=== PATIENT | male | born 1965 | race Caucasian/White ===

== ENCOUNTER 2020-06-02 17:15 | Outpatient (REF) | payer MEDICARE, MEDICAID, SELFPAY ==
[2020-06-02 18:16] LABS: Abs Immature Grans 0.01 10^3/uL (0.0-0.06); Absolute Basophil Count 0.02 10^3/uL (0.0-0.2); Absolute Eosinophil Count 0.01 10^3/uL (0.0-0.7); Absolute Lymphocyte Count 1.73 10^3/uL (1.2-3.4); Absolute Monocyte Count 0.41 10^3/uL (0.1-0.8); Absolute Neutrophil Count 4.03 10^3/uL (1.2-6.7); Basophils % 0.3; Eosinophils % 0.2; HCT 43.3 % (40.0-50.0); HGB 14.3 g/dL (13.5-17.5); Immature Grans % 0.2; Lymphocytes % 27.9; MCH 30.4 pg (27.0-33.0); MCV 92.1 fL (80-95); MPV 11.3 fL (8.0-11.0); Monocytes % 6.6; Neutrophils % 64.8; Nucleated RBC 0 %; Platelet Count 191 10^3/uL (130-400); RDW 11.8 % (11.8-14.1); RDW-SD 39.7 fL; WBC 6.21 10^3/uL (4.4-10.8)
[2020-06-02 19:20] LABS: Calculated LDL 123 mg/dL (<100); Cholesterol 205 mg/dL (<200); HDL Cholesterol 65 mg/dL (40-60); Triglyceride 89 mg/dL (<150)
[2020-06-06 11:17] LABS: HIV-1/2 Ag & Ab Screen Negative (Negative)
== END 2020-06-02 17:35 ==
LOC: NCHCN 17:15
PROVIDERS: PCP Family Medicine; Visit Provider Family Medicine
DX: D70.9 Neutropenia, unspecified (principal); E78.89 Other lipoprotein metabolism disorders; Z11.4 Encounter for screening for human immunodeficiency virus [HIV]
CPT/HCPCS: 80061; 87389; 85025

== ENCOUNTER 2020-07-13 18:17 | Observation (INO) | payer MEDICARE, MEDICAID, SELFPAY ==
[2020-07-13] VITALS (34 sets, daily range): BP systolic 121–163; BP diastolic 73–90; PULSE 61–81; RESP 14–19; TEMP 36.1–36.7; O2SAT 94–98
--- NOTE | 2020-07-13 18:15 | RT.EKG_ITS ---
APPROVED REPORT Exam: Resting ECG Patient Location: E HR:74 bpm ECG Measurements Heart Rate 74 AXIS TX 134 P 54 QRSd 96 QRS 90 QT 370 T 11 QTc 412 Conclusion Sinus rhythm...normal P axis
--- NOTE | 2020-07-13 18:32 | DI.RAD_ITS ---
EXAM: XR CHEST 2V PA LATERAL CLINICAL HISTORY: Syncope TECHNIQUE: 2D digital imaging was performed. COMPARISON: No exams were available for comparison FINDINGS: MEDIASTINUM: Normal. HEART: Normal. PULMONARY VASCULATURE: Normal. LUNGS: Clear. Biapical pleural scarring. PLEURAL SPACE: No pleural effusion or pneumothorax. BONE:Within normal limits for the patient's age. OTHER FINDINGS:Normal. IMPRESSION: No acute pulmonary findings. DATA REPOSITORY: RADIATION DOSE DELIVERED:
--- NOTE | 2020-07-13 18:33 | W.ED.GENAD ---
Discharge Plan Disposition Patient Disposition: [facility] INPATIENT Condition: Good Discharge Details Chief Complaint: Dizzy/Sync Clinical Impression: Abnormal ECG, Syncope Primary Care Provider: Fredy Knott ED Provider: Antonio Vasquez Home Meds and New Rx's Prescriptions: No Action No Known Home Meds RF: 0 Discharge Instructions Additional Instructions: Home to rest this evening. We have ordered a Holter monitor for you to be worn as an outpatient for 48 hours. Please present to respiratory therapy tomorrow at 10 AM, after brief screening through the main lobby doors. Medical Decision Making <Dino Kumari MD - Last Filed: 07/13/20 19:57> This is a 55-year-old male who presents from home. He states he got up from the dinner table to urinate, then upon returning, felt lightheaded, diaphoretic and fell backwards. There was a questionable brief loss of consciousness approximately 30 to 60 seconds. Patient states he does not have a headache, no chest pain, no shortness of breath. He states this is similar to an episode that happened in 2018 for which he was evaluated in the emergency department without significant finding. Patient does confirm a small amount of alcohol use as per his routine this evening. He states that he is otherwise been well and now feels normal. He lives with a long-term home care provider. Blood pressure 136/90, pulse 79, afebrile. Exam is without acute finding. Inf/Lat q waves noted on EKG. Patient referred for laboratory testing, EKG, CT scan of the head, urinalysis. Given [address] scan and chest x-ray without acute findings. Patient's initial labs are reassuring. Would note that his specific gravity is 1.025. We will continue to observe on story teller and plan to obtain repeat troponin. Given that he has had 2 separate syncopal episodes with resultant ER evaluations, will order a Holter monitor. Patient be signed out to Dr. Vasquez pending repeat laboratories. Please see his note. Lab Data Lab results reviewed: Yes I reviewed the patient's lab results. Labs: Laboratory Results - last 24 hr 07/13/20 07/13/20 18:24 18:24 WBC 6.69 RBC 4.69 Hgb 14.5 Hct 43.6 MCV 93.0 MCH 30.9 MCHC 33.3 RDW 11.9 Plt Count 238 MPV 9.8 Immature Gran % 0.1 Neutrophils % 59.6 Lymphocytes % 33.0 Monocytes % 6.3 Eosinophils % 0.6 Basophils % 0.4 Nucleated RBC % 0 Absolute Neutrophils 3.98 Absolute Lymphocytes 2.21 Absolute Monocytes 0.42 Absolute Eosinophils 0.04 Absolute Basophils 0.03 Sodium 140 Potassium 4.1 Chloride 104 Carbon Dioxide 32.3 H Anion Gap 3.7 BUN 14 Creatinine 1.21 Estimated GFR/1.73 m2 >= 60.00 Glucose 98 Calcium 8.6 Magnesium 1.8 Total Bilirubin 0.3 AST 11 L ALT 23 Alkaline Phosphatase 75 Troponin I < 0.05 Total Protein 7.1 Albumin 3.7 Ethyl Alcohol < 3.0 <Antonio Vasquez, - Last Filed: 07/13/20 22:20> Patient signed out to me by my colleague Dr. Dino Kumari. Please see his HPI, physical exam assessment and plan. At time of signout we are pending repeat troponin. Repeat troponin has returned, and is normal. Repeat EKG is also unchanged. I discussed the case again with family and the patient, and it seems that he had another episode of syncope like this about a year and 1/2 to 2 years ago, he was seen in the ER at that time, EKG was similar to what we are seeing now. Unfortunately he got no further work-up on an outpatient basis. EKG does show borderline Q waves in the inferior leads, mild signs of hypertrophy laterally, however bedside notably limited echocardiogram shows no severe hypertrophy, ejection fraction looks to be mildly reduced, septum does not appear to be notably obtrusive. With the patient's several episodes of syncope, near atypical EKG, the slightly abnormal bedside echo I do feel that it would be beneficial to keep the patient monitor him overnight and have formal echocardiogram in the morning for further evaluation. I discussed the case with the patient's care provider Ivette, as well as Dr. Perez. He agrees with the assessment and plan. Patient will be admitted for further management. I have extensively reviewed the treatment plan with the patient. I have addressed all patient concerns at this time. I have also discussed the plan with the admitting physician and they agree with the current assessment and plan and have agreed to assume responsibility for the patient. All parties demonstrate verbal understanding and agreement with our assessment and plan at this time. EKG 21: 25 Rate 62, sinus rhythm, notable Q waves in 2, 3, and aVF, minimal less than a millimeter of elevation in V2 V3 V4, Q waves also present in the lateral leads V5 and V6, no evidence of STEMI. No evidence of WPW, no evidence of Brugada syndrome HPI <Dino Kumari MD - Last Filed: 07/13/20 19:57> General Mode of arrival: EMS. Date/Time Provider Initiated Documentation: 07/13/20 18:27. Limitations to Documentation: no limitations. Information obtained by: patient and EMS. History of Present Illness 55 year old M presents to the emergency department with the chief complaint of Syncope at home, now improved and no complaints, described as mild, Patient started experiencing this minute(s) and it has been now resolved. No relieving factors improve symptom(s), No exacerbating factors reported . Patient notes diaphoresis and syncope; denies chest pain, cough, shortness of breath and weakness. Patient did receive the following treatments prior to arrival, none Related Data Home Medications Medication Instructions Recorded Confirmed Unknown [No Known Home Meds] 02/27/18 02/27/18 Allergies Allergy/AdvReac Type Severity Reaction Status Date / Time No Known Allergies Allergy Unverified 02/27/18 20:19 General Stated Complaint: Dizzy/Sync JUNITO: 2 Review of Systems <Dino Kumari MD - Last Filed: 07/13/20 19:57> Narrative: Small amount of alcohol, denies chest pain, no shortness of breath, no headache. No focal weakness, no difficulty with speech. States he has he has recently been well. States this is similar to an episode for which she was seen in the ER 2018. 8 systems reviewed and otherwise negative PFSH <Dino Kumari MD - Last Filed: 07/13/20 19:57> Surgical History (Updated 10/15/16 @ 15:30 by Ayesha Velasquez) Colonoscopy - MAC (10/15/16) Social History Smoking/Tobacco Use Status: Never Smoking risk assessment performed?: Yes Drug use: Never Do you feel safe at home: Yes Do you feel safe in your relationship?: Yes Exam <Dino Kumari MD - Last Filed: 07/13/20 19:57> Narrative Exam Narrative: GEN: awake, alert, oriented 3. Pleasant, well groomed, interactive. HEAD: Normocephalic, atraumatic ENT: Mucous membranes moist, oropharynx unremarkable, External ear exam unremarkable EYES: PERRL, EOMI NECK: No posterior step-off or deformity. No tenderness. Full ROM, no SANTA, no menigismus CHEST/RESP: Nontender, clear to auscultation bilateral, no wheeze/rhonchi/rales CARDIOVASCULAR: RRR, no murmur, rub robert. 2+ Rad pulse bilateral ABDOMEN: Soft, nontender, no mass. +Bowel sounds EXT: Full ROM, no edema, no rash Neuro: Grossly normal neurologic exam, conversant, interactive. Psych: Speech fluent, thoughts congruent, affect normal Course <Dino Kumari MD - Last Filed: 07/13/20 19:57> Vital Signs Vital signs: Vital Signs Temperature 36.7 C 07/13/20 18:21 Pulse 79 07/13/20 18:21 Respiratory Rate 18 07/13/20 18:21 Blood Pressure 156/90 H 07/13/20 18:21 Pulse Oximetry 98 07/13/20 18:21 Temperature 36.7 C 07/13/20 18:21 Temperature Source Temporal Artery Scan 07/13/20 18:21 Pulse 79 07/13/20 18:21 Respiratory Rate 18 07/13/20 18:21 Respiratory Effort 07/13/20 18:28 Blood Pressure 156/90 H 07/13/20 18:21 Blood Pressure Position Sitting 07/13/20 18:21 Pulse Oximetry 98 07/13/20 18:21 Oxygen Delivery Method Room Air 07/13/20 18:21 Oxygen Flow Rate 0 07/13/20 18:21 Pain Level 0 07/13/20 18:21 Sign Out <Dino Kumari MD - Last Filed: 07/13/20 19:57> Sign Out Data: Sign Out Comment: Follow-up repeat troponin. Holter monitor ordered for tomorrow. Last updated by Dino Kumari MD at 07/13/20 19:48
[2020-07-13 18:34] LABS: Abs Immature Grans 0.01 10^3/uL (0.0-0.06); Absolute Basophil Count 0.03 10^3/uL (0.0-0.2); Absolute Eosinophil Count 0.04 10^3/uL (0.0-0.7); Absolute Lymphocyte Count 2.21 10^3/uL (1.2-3.4); Absolute Monocyte Count 0.42 10^3/uL (0.1-0.8); Absolute Neutrophil Count 3.98 10^3/uL (1.2-6.7); Basophils % 0.4; Eosinophils % 0.6; HCT 43.6 % (40.0-50.0); HGB 14.5 g/dL (13.5-17.5); Immature Grans % 0.1; MCH 30.9 pg (27.0-33.0); MCHC 33.3 % (32.0-36.0); MPV 9.8 fL (8.0-11.0); Monocytes % 6.3; Neutrophils % 59.6; Nucleated RBC 0 %; Platelet Count 238 10^3/uL (130-400); RBC 4.69 10^6/uL (4.36-5.78); RDW 11.9 % (11.8-14.1); RDW-SD 40.6 fL; WBC 6.69 10^3/uL (4.4-10.8)
[2020-07-13 18:49] LABS: ALT 23 U/L (16-63); AST 11 U/L (15-37); Albumin 3.7 g/dL (3.4-5.0); Alkaline Phosphatase 75 U/L (46-116); Anion Gap 3.7 mmol/L (3-11); BUN 14 mg/dL (7-18); Bilirubin, Total 0.3 mg/dL (0.2-1.0); CO2 32.3 mmol/L (21.0-32.0); CREATININE 1.21 mg/dL (0.70-1.30); Calcium 8.6 mg/dL (8.5-10.1); Chloride 104 mmol/L (98-107); Glucose 98 mg/dL (74-106); Magnesium 1.8 mg/dL (1.8-2.4); Potassium 4.1 mmol/L (3.5-5.1); Sodium 140 mmol/L (136-145); Total Protein 7.1 g/dL (6.4-8.2)
[2020-07-13 18:51] LABS: Troponin I < 0.05 ng/mL (<0.06)
--- NOTE | 2020-07-13 18:53 | DI.CT_ITS ---
EXAM: CT HEAD WO CLINICAL HISTORY: Syncope. TECHNIQUE: Imaging Protocol: Axial computed tomography images with coronal and sagittal reformatted images were created and reviewed COMPARISON: No exams were available for comparison FINDINGS: Ventricles and Extra axial spaces: Normal in size and morphology for the patient's age. Hemorrhage: None. Cerebral parenchyma: Normal. Midline shift: None. Brainstem/Cerebellum: Normal. Calvarium: Normal. Visualized Paranasal sinuses/Mastoids: Clear. Soft Tissues: Unremarkable. IMPRESSION: No acute intracranial process. RADIATION DOSE DELIVERED: 699.49mGy.cm Total DLP DATA REPOSITORY: All CT scans at this facility are submitted to the National Radiology Data Registry (NRDR) Dose Index Registry (DIR) with the [employer] (A[employer]). RADIATION OPTIMIZATION: All CT scans at this facility use at least one of these dose optimization te chniques: automated exposure control; mA and/or kV adjustment per patient size (includes targeted exa ms where dose is matched to clinical indication); or iterative reconstruction.
--- NOTE | 2020-07-13 19:00 | DI.VRAD_ITS ---
PROCEDURE INFORMATION: Exam: XR Chest, 2 Views Exam date and time: 07/13/2020 6:47 PM Age: 55 years old Clinical indication: Other: Syncope TECHNIQUE: Imaging protocol: XR of the chest Views: 2 views. COMPARISON: No relevant prior studies available. FINDINGS: Lungs: Bilateral apical irregular pleural thickening. No pulmonary consolidation. Pleural space: Unremarkable. No pleural effusion. No pneumothorax. Heart/Mediastinum: Unremarkable. No cardiomegaly. Bones/joints: Unremarkable. IMPRESSION: No acute abnormality. Dictated and Authenticated by: Mynor Steele MD. Ordering:REMY Sun MD
[2020-07-13] MEDS: Normal Saline 1,000 ML 1000 ML IV ×2 (19:02)
--- NOTE | 2020-07-13 19:06 | DI.VRAD_ITS ---
PROCEDURE INFORMATION: Exam: CT Head Without Contrast Exam date and time: 07/13/2020 6:51 PM Age: 55 years old Clinical indication: Syncope and collapse TECHNIQUE: Imaging protocol: Computed tomography of the head without contrast. Radiation optimization: All CT scans at this facility use at least one of these dose optimization techniques: automated exposure control; mA and/or kV adjustment per patient size (includes targeted exams where dose is matched to clinical indication); or iterative reconstruction. COMPARISON: No relevant prior studies available. FINDINGS: Brain: Unremarkable. No hemorrhage. No significant white matter disease. No edema. Cerebral ventricles: No ventriculomegaly. Bones/joints: Unremarkable. No acute fracture. Paranasal sinuses: Visualized sinuses are unremarkable. No fluid levels. Mastoid air cells: Visualized mastoid air cells are well aerated. Soft tissues: Unremarkable. IMPRESSION: No acute abnormality. Dictated and Authenticated by: Mynor Steele MD. Ordering:REMY Sun MD
[2020-07-13 19:11] LABS: ETHANOL BLOOD < 3.0 mg/dL (<3)
[2020-07-13 19:31] LABS: Bilirubin Negative (Negative); Blood Negative (Negative); Clarity Clear (Clear); Glucose Negative (Negative); Ketones Negative (Negative); Leukocyte Esterase Negative (Negative); Nitrite Negative (Negative); Specific Gravity 1.025 (1.005-1.025); Urobilinogen 0.2 EU/dL (Up TO 0.2)
--- NOTE | 2020-07-13 21:15 | RT.EKG_ITS ---
APPROVED REPORT Exam: Resting ECG Patient Location: E HR:62 bpm ECG Measurements Heart Rate 62 AXIS NE 160 P 50 QRSd 83 QRS 87 QT 403 T 43 QTc 410 Conclusion Sinus rhythm...normal P axis, V-rate 60- 99 Physician: EKG 21: 25 Rate 62, sinus rhythm, notable Q waves in 2, 3, and aVF, minimal less than a millimeter of elevation in V2 V3 V4, Q waves also present in the lateral leads V5 and V6, no evidence of STEMI. No evidence of WPW, no evidence of Brugada syndrome
[2020-07-13 21:43] LABS: Troponin I < 0.05 ng/mL (<0.06)
--- NOTE | 2020-07-13 22:29 | W.PM.HP.N ---
Date of service: 07/13/20 Time of Service: 22:29 Assessment and Plan Assessment and plan (1) Syncope: Status: Chronic Assessment and plan: Syncope. Sounds like classic vagal episode, but cannot r/o arrythmia, especially in setting of abnormal (though stable) EKG. Will complete troponin series and monitor telemetry. Formal ECHO in AM. History of Present Illness History of Present Illness Chief Complaint: syncope Narrative: 55 male. Was very hot at home, got up from dinner table to bring dishes to sink (had not eaten much) and had witnessed syncopal episode. Noted to be clammy and very pale. Pulse not checked. In ER findings of note normal BP, trop neg x 2 and EKG suggestive of LVH, but unchanged from prior. U/S reported as unremarkable in ER. Admitted for further eval. Fees entirely well at present. Review of Systems All systems reviewed & are unremarkable except as noted in HPI and below PFSH Surgical History Colonoscopy - MAC (10/15/16) Social History Smoking/Tobacco Use Status: Never Smoking risk assessment performed?: Yes Drug use: Never Do you feel safe at home: Yes Do you feel safe in your relationship?: Yes Meds Home Medications and Allergies Home Medications Medication Instructions Recorded Confirmed Type Unknown [No Known Home Meds] 02/27/18 02/27/18 History Allergies Allergy/AdvReac Type Severity Reaction Status Date / Time No Known Allergies Allergy Unverified 02/27/18 20:19 Exam Narrative Exam Narrative: 130/79, 66, 36.7, 16, 96% RA. HEENT atraumatic; neck supple; heart RRR w/o MRG; abdomen soft NT;extremities w/o edema, pulse 2+/=; neuro Ox3, nonfocal Results Labs Result diagrams: 07/13/20 18:24 07/13/20 18:24 Labs: Laboratory Results - last 24 hr 07/13/20 07/13/20 07/13/20 18:24 18:24 19:25 WBC 6.69 RBC 4.69 Hgb 14.5 Hct 43.6 MCV 93.0 MCH 30.9 MCHC 33.3 RDW 11.9 Plt Count 238 MPV 9.8 Immature Gran % 0.1 Neutrophils % 59.6 Lymphocytes % 33.0 Monocytes % 6.3 Eosinophils % 0.6 Basophils % 0.4 Nucleated RBC % 0 Absolute Neutrophils 3.98 Absolute Lymphocytes 2.21 Absolute Monocytes 0.42 Absolute Eosinophils 0.04 Absolute Basophils 0.03 Sodium 140 Potassium 4.1 Chloride 104 Carbon Dioxide 32.3 H Anion Gap 3.7 BUN 14 Creatinine 1.21 Estimated GFR/1.73 m2 >= 60.00 Glucose 98 Calcium 8.6 Magnesium 1.8 Total Bilirubin 0.3 AST 11 L ALT 23 Alkaline Phosphatase 75 Troponin I < 0.05 Total Protein 7.1 Albumin 3.7 Urine Color Yellow Urine Clarity Clear Urine pH 7.0 Ur Specific [place] 1.025 Urine Protein Negative Urine Ketones Negative Urine Blood Negative Urine Nitrite Negative Urine Bilirubin Negative Urine Urobilinogen 0.2 Ur Leukocyte Esterase Negative Urine Glucose Negative Ethyl Alcohol < 3.0 07/13/20 21:15 WBC RBC Hgb Hct MCV MCH MCHC RDW Plt Count MPV Immature Gran % Neutrophils % Lymphocytes % Monocytes % Eosinophils % Basophils % Nucleated RBC % Absolute Neutrophils Absolute Lymphocytes Absolute Monocytes Absolute Eosinophils Absolute Basophils Sodium Potassium Chloride Carbon Dioxide Anion Gap BUN Creatinine Estimated GFR/1.73 m2 Glucose Calcium Magnesium Total Bilirubin AST ALT Alkaline Phosphatase Troponin I < 0.05 Total Protein Albumin Urine Color Urine Clarity Urine pH Ur Specific [place] Urine Protein Urine Ketones Urine Blood Urine Nitrite Urine Bilirubin Urine Urobilinogen Ur Leukocyte Esterase Urine Glucose Ethyl Alcohol Last Vital Signs Temp 36.7 C 07/13/20 18:21 Pulse 66 07/13/20 20:31 Resp 16 07/13/20 20:40 BP 130/79 07/13/20 20:31 Pulse Ox 96 07/13/20 20:20 COVID-19 Screening Have you, or household traveled for leisure in last 14 days?: No Had IN PERSON contact w/suspected or confirmed C-19 person: No
[2020-07-14 05:58] VITALS: BP 153/81; PULSE 65; RESP 18; TEMP 37; O2SAT 97
[2020-07-14 07:32] LABS: Troponin I < 0.05 ng/mL (<0.06)
[2020-07-14 07:33] VITALS: BP 147/84; PULSE 63; RESP 17; TEMP 36.9; O2SAT 97
[2020-07-14 10:06] VITALS: BP 142/74; BP 147/74; BP 150/69; PULSE 60; PULSE 64; PULSE 73
[2020-07-14] MEDS: Normal Saline Flush 10 ML SYR IVP (14:12)
--- NOTE | 2020-07-14 14:33 | W.PM.DS.N ---
Date of service: 07/14/20 Time of Service: 14:34 DS: Diagnosis Discharge Diagnosis (1) Syncope: Status: Chronic Discharge Plan Disposition Patient Disposition: HOME Condition: Good Discharge Details Reason For Visit: SYNCOPE Admit Date/Time: 07/13/20 22:38 Admit Provider: Ede Perez Attending Provider: Ede Perez Primary Care Provider: Fredy Knott [facility] Course Hospital Course: This is a 55 male with no significant PMH. He was very hot at home, got up from dinner table to bring dishes to sink (had not eaten much) and had witnessed syncopal episode. He has a rn progressive care that lives with him d/t developmental delay. Noted to be clammy and very pale. Pulse not checked. In ER findings of note normal BP, trop neg x 2 and EKG suggestive of LVH, but unchanged from prior. US of heart reported as unremarkable in ER. Admitted for further eval. [place] well at time of admission and the following morning. Echocardiogram performed; results pending. He had no further episodes of syncope, no pre-syncopal symptoms. Troponin neg x 3. He will f/u with his PCP in 1-2 weeks. Instructions given on changing from lying or sitting to standing in a slow manner. Maintain adequate hydration. Home Meds and New Rx's Prescriptions: No Action No Known Home Meds RF: 0 Discharge Instructions Instructions: Syncope (DC) Activity:: Activity as Tolerated Equipment/Supplies:: No Equipment Needed Diet:: As Tolerated Discharge Orders Discharge Orders: Discharge Order (Routine); Ordered 07/14/20 Ordered By: Dalton Ulloa DS: Summary Status at Discharge Functional status at discharge: independent ambulation Overall status at discharge: patient is back to baseline Mental Status: mental status grossly normal Speech and Movement: speech and movement normal Mood: congruent mood Affect: normal affect Exam Const General: cooperative and no acute distress Nutritional Appearance: average body habitus Orientation: alert, oriented to person and oriented to place Resp Effort & Inspection: normal respiratory effort Auscultation: clear to auscultation bilaterally Cardio Jugular venous pressure: no JVD Rate: regular rate Rhythm: regular rhythm Heart Sounds: S1 normal and S2 normal GI Palpation: soft and nontender Auscultation: normal bowel sounds Skin General skin exam: no rashes or lesions noted Extrem General: no pedal edema and no calf tenderness Psych Mental Status: mental status grossly normal Speech and Movement: speech and movement normal Mood: congruent mood Affect: normal affect DS: Data Vitals/I&O Vitals and I&O: Vital Signs Temperature 36.9 C 07/14/20 07:33 Temperature Source Tympanic 07/14/20 07:33 Pulse 60 07/14/20 10:06 Pulse Rhythm Regular 07/14/20 10:04 Pulse 61 07/13/20 23:20 Respiratory Rate 17 07/14/20 07:33 Respiratory Effort Non-Labored 07/14/20 10:04 Respiratory Depth Normal 07/14/20 10:04 Respiratory Pattern Normal 07/14/20 10:04 Blood Pressure 142/74 H 07/14/20 10:06 Blood Pressure Mean 89 07/13/20 21:01 Blood Pressure Position Sitting 07/13/20 18:21 Pulse Oximetry 97 07/14/20 07:33 Oxygen Delivery Method Room Air 07/14/20 07:33 Oxygen Flow Rate 0 07/14/20 07:33 Pain Level 0 07/14/20 07:33 Comment 07/14/20 10:06 Intake & Output 07/13/20 07/14/20 07/14/20 23:59 11:59 23:59 Intake Total 1999 3602 / 3852 250 / 3852 Output Total 200 / 200 675 / 1375 700 / 1375 Balance 1800 / 1800 2927 / 2477 -450 / 2477 Weight 70.7 kg Intake: IV 1999 10 Oral 3602 / 3842 240 / 3842 Output: Urine 200 / 200 675 / 1375 700 / 1375 Other: Urine Color Pale Yellow Yellow Yellow Urine Appearance Clear Clear Clear Urine Odor Normal Normal Normal Voiding Methods Urinal Urinal Urinal Data Completed and Pending Labs on day of discharge: Labs from last 24 hours 07/14/20 07/13/20 07/13/20 06:30 23:10 21:15 WBC RBC Hgb Hct MCV MCH MCHC RDW Plt Count MPV Immature Gran % Neutrophils % Lymphocytes % Monocytes % Eosinophils % Basophils % Nucleated RBC % Absolute Neutrophils Absolute Lymphocytes Absolute Monocytes Absolute Eosinophils Absolute Basophils Sodium Potassium Chloride Carbon Dioxide Anion Gap BUN Creatinine Estimated GFR/1.73 m2 Glucose Calcium Magnesium Total Bilirubin AST ALT Alkaline Phosphatase Troponin I < 0.05 < 0.05 Total Protein Albumin Urine Color Urine Clarity Urine pH Ur Specific [place] Urine Protein Urine Ketones Urine Blood Urine Nitrite Urine Bilirubin Urine Urobilinogen Ur Leukocyte Esterase Urine Glucose Ethyl Alcohol COVID-19 PCR Pending Nasopharyn COVID-19 PCR Pending Ref Test Perform Site Pending 07/13/20 07/13/20 07/13/20 19:25 18:24 18:24 WBC 6.69 RBC 4.69 Hgb 14.5 Hct 43.6 MCV 93.0 MCH 30.9 MCHC 33.3 RDW 11.9 Plt Count 238 MPV 9.8 Immature Gran % 0.1 Neutrophils % 59.6 Lymphocytes % 33.0 Monocytes % 6.3 Eosinophils % 0.6 Basophils % 0.4 Nucleated RBC % 0 Absolute Neutrophils 3.98 Absolute Lymphocytes 2.21 Absolute Monocytes 0.42 Absolute Eosinophils 0.04 Absolute Basophils 0.03 Sodium 140 Potassium 4.1 Chloride 104 Carbon Dioxide 32.3 H Anion Gap 3.7 BUN 14 Creatinine 1.21 Estimated GFR/1.73 m2 >= 60.00 Glucose 98 Calcium 8.6 Magnesium 1.8 Total Bilirubin 0.3 AST 11 L ALT 23 Alkaline Phosphatase 75 Troponin I < 0.05 Total Protein 7.1 Albumin 3.7 Urine Color Yellow Urine Clarity Clear Urine pH 7.0 Ur Specific [place] 1.025 Urine Protein Negative Urine Ketones Negative Urine Blood Negative Urine Nitrite Negative Urine Bilirubin Negative Urine Urobilinogen 0.2 Ur Leukocyte Esterase Negative Urine Glucose Negative Ethyl Alcohol < 3.0 COVID-19 PCR Nasopharyn COVID-19 PCR Ref Test Perform Site [facility] Surgical History Colonoscopy - MAC (10/15/16) Social History Smoking/Tobacco Use Status: Never Smoking risk assessment performed?: Yes Drug use: Never Do you feel safe at home: Yes Do you feel safe in your relationship?: Yes
--- NOTE | 2020-07-14 15:13 | INITIAL_ITS ---
- If Service Date Differs Date of service: 07/14/20 Time of Service: 15:13 Care Management Initial Assess REASON FOR HOSPITALIZATION:: Syncope PAST MEDICAL HISTORY/PAST SURGICAL HISTORY:: No Known medical history. Surgical History . Colonoscopy - MAC (10/15/16) PREVIOUS FUNCTIONAL STATUS/SOCIAL/FAMILY SUPPORTS:: Jericho lives in an AFC home in [place] with Benitez Marks and his . Jericho works at [employer] and at [employer] in [place]. He is insdependent with ADLs and drives a scooter. CURRENT FUNCTIONAL STATUS:: Jericho was sitting up in bed with his Care Provider Benitez by his side. He was smiling and very pleasant and agreeable to answering questions. Jericho shared that he is feeling completely well now and would like to go home. ADVANCE DIRECTIVES:: none on file Has patient been provided with info about the portal/API?: No Did the patient sign up for the portal?: No CODE STATUS:: Full Code INSURANCE COVERAGE / FINANCIAL ISSUES:: Medicare and Medicaid CURRENT HOME/COMMUNITY SERVICES/EQUIPMENT:: Jericho lives in an AFC home with Benitez Marks and his family and has for 12 years. PRIMARY CARE PHYSICIAN:: Fredy Knott PATIENT/FAMILY EDUCATION NEEDS:: Discharge plan, limitations, follow up plan, Ask Me Three TRANSPORTATION:: via private vehicle with Benitez PLAN:: Jericho will be discharged back to his AFC home with no new services. He will follow up with his PCP and discharge plan of care. He will transport with Benitez via private vehicle.
[2020-07-14 15:20] VITALS: BP 136/75; PULSE 61; RESP 18; TEMP 36.3; O2SAT 98
--- NOTE | 2020-07-14 15:31 | CHAPLAIN ---
Jericho was sitting up in his bed when I visited. He had a visitor with him. I explained my role and offered Jericho support.
[2020-07-18 12:42] LABS: Patient Race White; SARS-CoV-2 RNA Undetected (Undetected); SARS-CoV-2 Specimen Source Nasal
== END 2020-07-14 16:30 | disposition home or self-care (01) ==
LOC: ER 22:46 → MS 23:30
PROVIDERS: Emergency Medicine; Admitting Provider General Practice; Emergency Provider Student in an Organized Health Care Education/Training Program; PCP Family Medicine; Visit Provider General Practice
DX: R55 Syncope and collapse (principal); R94.31 Abnormal electrocardiogram [ECG] [EKG]; R23.1 Pallor; R42 Dizziness and giddiness; W19.XXXA Unspecified fall, initial encounter
CPT/HCPCS: 36415; 80053; 93005; 96360; 96361; 99222; 99238; 99285; U0003; 70450; 71046; 80320; 81003; 83735; 84484; 85025; 93010; 93306; 99217; 99218; G0378

== ENCOUNTER 2020-07-15 11:59 | Outpatient (CLI) | payer MEDICARE, MEDICAID, SELFPAY | END 2020-07-15 12:19 | PROVIDERS: PCP Family Medicine; Visit Provider Family Medicine | DX: R55 Syncope and collapse (principal) | CPT/HCPCS: 93225 ==

== ENCOUNTER 2020-07-18 09:44 | Outpatient (CLI) | payer MEDICARE, MEDICAID, SELFPAY ==
--- NOTE | 2020-07-18 10:45 | HOLT_ITS ---
Date of service: 07/18/20 Time of Service: 10:45 Holter Monitor Report Referring Provider:: Dalton Ulloa Indications:: Syncope Holter Monitor Note: This was a 48-hour Holter monitor, performed for the indication of syncope Rhythm throughout was sinus. Average heart rate was 64. Minimum was 50 and maximum 122 There were very rare atrial and ventricular ectopic beats There was no atrial fibrillation, no pauses greater than 3 seconds, no high- grade AV block
== END 2020-07-18 10:04 ==
PROVIDERS: PCP Family Medicine; Visit Provider Family Medicine
DX: R55 Syncope and collapse (principal)
CPT/HCPCS: 93227; 93226

== ENCOUNTER 2020-08-08 00:26 | Outpatient (CLI) | payer MEDICARE, MEDICAID, SELFPAY ==
--- NOTE | 2020-08-08 | DI.US_ITS ---
EXAM: US CAROTID CLINICAL HISTORY: RT CAROTID BRUIT,R09.89,2 EPISODES OF SYNCOPE TECHNIQUE: Ultrasound performed using standard protocol. COMPARISON: US US ECHOCARDIOGRAM from 07/14/2020 FINDINGS: Duplex evaluation of the carotid circulation was performed according to the usual protocol. There is little if any visible atheromatous plaque in the visualized carotid circulation. There is bilateral antegrade vertebral flow. Flow velocities in the common, internal, and external carotid arteries ar e within normal limits bilaterally. IMPRESSION: Negative bilateral carotid ultrasound. No evidence of a hemodynamically significant carotid stenosis . DATA REPOSITORY:
== END 2020-08-08 00:46 ==
PROVIDERS: PCP Family Medicine; Visit Provider Family Medicine
DX: R09.89 Other specified symptoms and signs involving the circulatory and respiratory systems (principal); R55 Syncope and collapse
CPT/HCPCS: 93880

== ENCOUNTER 2022-09-12 10:58 | Outpatient (REF) | payer MEDICARE, MEDICAID, SELFPAY ==
[2022-09-12 15:37] LABS: TSH (W/Ref FT4) 1.67 uIU/mL (0.36-3.74)
== END 2022-09-12 10:59 | disposition home or self-care (01) ==
LOC: NCHCN 10:58
PROVIDERS: PCP Family Medicine; Visit Provider Family Medicine
DX: R53.83 Other fatigue (principal)
CPT/HCPCS: 84443

== ENCOUNTER 2023-09-17 10:17 | Outpatient (REF) | payer MEDICARE, MEDICAID, SELFPAY ==
[2023-09-17 15:43] LABS: Calculated LDL 166 mg/dL (<100); Cholesterol 248 mg/dL (<200); HDL Cholesterol 70 mg/dL (40-60); Triglyceride 63 mg/dL (<150)
== END 2023-09-17 10:18 | disposition home or self-care (01) ==
LOC: NCHCN 10:17
PROVIDERS: PCP Family Medicine; Visit Provider Family Medicine
DX: R79.89 Other specified abnormal findings of blood chemistry (principal); Z00.00 Encounter for general adult medical examination without abnormal findings
CPT/HCPCS: 80061

== ENCOUNTER 2023-12-05 11:52 | Outpatient (REF) | payer MEDICARE, MEDICAID, SELFPAY ==
[2023-12-05 15:22] LABS: Abs Immature Grans 0.01 10^3/uL (0.0-0.06); Absolute Basophil Count 0.02 10^3/uL (0.0-0.2); Absolute Eosinophil Count 0.01 10^3/uL (0.0-0.7); Absolute Lymphocyte Count 1.03 10^3/uL (1.2-3.4); Absolute Monocyte Count 0.33 10^3/uL (0.1-0.8); Absolute Neutrophil Count 4.21 10^3/uL (1.2-6.7); Basophils % 0.4; Eosinophils % 0.2; HCT 45.2 % (40.0-50.0); HGB 15.3 g/dL (13.5-17.5); Immature Grans % 0.2; Lymphocytes % 18.4; MCHC 33.8 % (32.0-36.0); MCV 92 fL (80-95); MPV 10.6 fL (8.0-11.0); Monocytes % 5.9; Neutrophils % 74.9; Platelet Count 241 10^3/uL (130-400); RBC 4.93 10^6/uL (4.36-5.78); RDW 12.1 % (11.8-14.1); RDW-SD 40.8 fL; WBC 5.61 10^3/uL (4.4-10.8)
[2023-12-05 16:06] LABS: ALT 23 U/L (16-63); AST 9 U/L (15-37); Albumin 3.8 g/dL (3.4-5.0); Alkaline Phosphatase 81 U/L (46-116); Anion Gap 9.8 mmol/L (3-11); BUN 14 mg/dL (7-18); Bilirubin, Total 0.6 mg/dL (0.2-1.0); CO2 28.2 mmol/L (21.0-32.0); Calcium 9.2 mg/dL (8.5-10.1); Chloride 106 mmol/L (98-107); Glucose 98 mg/dL (74-106); Potassium 4.9 mmol/L (3.5-5.1); Sodium 144 mmol/L (136-145); Total Protein 6.9 g/dL (6.4-8.2)
[2023-12-06 10:06] LABS: IgA 160 mg/dL (85-499)
[2023-12-06 22:32] LABS: Tissue Transglutaminase Ab IgA <1.2 U/mL (<4.0); Tissue Transglutaminase Ab IgG 2.7 U/mL
== END 2023-12-05 11:53 | disposition home or self-care (01) ==
LOC: NCHCN 11:52
PROVIDERS: PCP Family Medicine; Visit Provider Family Medicine
DX: K52.9 Noninfective gastroenteritis and colitis, unspecified (principal)
CPT/HCPCS: 80053; 82784; 83516; 85025

== ENCOUNTER 2025-02-20 13:37 | Emergency (ER) | payer MEDICARE, MEDICAID, SELFPAY ==
[2025-02-20 13:39] VITALS: BP 138/80; PULSE 58; RESP 18; TEMP 34.7; O2SAT 98
--- NOTE | 2025-02-20 14:00 | DI.CT_ITS ---
Exam(s) CT HEAD CERV SPINE FACIAL WO EXAM: CT HEAD CERV SPINE FACIAL WO CLINICAL HISTORY: syncope, hit front and back of head. TECHNIQUE: Imaging Protocol: Axial computed tomography images with coronal and sagittal reformatted images were created and reviewed COMPARISON: CT CT HEAD WO from 07/13/2020 FINDINGS: CT Head: Ventricles and Extra axial spaces: Normal in size and morphology for the patient's age. Hemorrhage: None. Cerebral parenchyma: There is no evidence of an acute territorial infarct. There is no evidence of acute mass effect. Midline shift: None. Brainstem/Cerebellum: Normal. Calvarium: Normal. Visualized Paranasal sinuses/Mastoids: There is mild mucosal thickening the right maxillary sinus the remaining visualized paranasal sinuses are clear. Soft Tissues: Unremarkable. CT Face: Facial Bones: No definite fracture is noted in facial bones. Sinuses and Mastoids: Mild mucosal thickening in the right maxillary sinus. The remaining visualized paranasal sinuses are clear. Globes, extraocular muscles, optic nerves and retrobulbar fat: Normal. Upper aerodigestive tract: Normal. Mandible and bilateral temporomandibular joints: Normal. Soft tissues: Normal. CT Cervical Spine: Bones: No acute fracture or subluxation. There is mild reversal of the normal cervical lordosis which is likely degenerative in nature. Age-appropriate degenerative changes are seen in the cervical spine particularly at C5-6 and C6-C7. Soft Tissues: Unremarkable. Lung Apices: Clear. IMPRESSION: 1. No acute intracranial process. 2. No acute fracture or subluxation in the cervical spine. 3. No acute facial fracture. 4. The preliminary [facility] report was reviewed. RADIATION DOSE DELIVERED: !Error Total DLP DATA REPOSITORY: All CT scans at this facility are submitted to the National Radiology Data Registry (NRDR) Dose Index Registry (DIR) with the [employer] (ACR). RADIATION OPTIMIZATION: All CT scans at this facility use at least one of these dose optimization techniques: automated exposure control; mA and/or kV adjustment per patient size (includes targeted exams where dose is matched to clinical indication); or iterative reconstruction.
--- NOTE | 2025-02-20 14:00 | RT.EKG_ITS ---
APPROVED REPORT Exam: Resting ECG Reason for Exam: passed out Patient Location: E HR:60 bpm ECG Measurements Heart Rate 60 AXIS MN 142 P 59 QRSd 98 QRS 84 QT 430 T 45 QTc 429 Conclusion Sinus rhythm...normal P axis, V-rate 60- 99 Probable inferior infarct, old...Q>35mS, II III aVF ST elevation, consider anterior injury...ST >0.15mV, V1-V5 PHysician: EKG demonstrates Q wave in lead III, but no evidence of delta wave, epsilon wave, Brugada syndrome, de Sheffield hyperacute T waves, or other significant abnormality. EKG unchanged from 07/13/2020
--- NOTE | 2025-02-20 14:22 | W.ED.GENAD ---
Discharge Plan Disposition Patient Disposition: Home Condition: Good Discharge Details Clinical Impression: Syncope, Dehydration Primary Care Provider: Fredy Knott ED Provider: Antonio Vasquez Home Meds and New Rx's Prescriptions: No Action No Known Home Meds Discharge Instructions Instructions: Dehydration, Adult (DC), Syncope (Fainting) (DC) Additional Instructions: At this time your CAT scan shows no evidence of fracture. There is no signs of bleeding in your brain. You were dehydrated, however the rest of your blood work is otherwise unremarkable. Please drink plenty of fluids and stay well-hydrated. Avoid hot environments for prolonged periods of time. If you notice any worsening of your symptoms, or any new symptoms such as vomiting, diarrhea, fever, chills, shortness of breath, chest pain, numbness, weakness, or fainting , please return immediately to the emergency department for reevaluation. Please follow up with your primary care provider as soon as possible for reassessment and reevaluation. As always, it was a pleasure participating in your medical care today. Referrals: Fredy Knott [Primary Care Provider, Medicine] [facility] General Date/Time Provider Initiated Documentation: 02/20/25 13:40. HPI Narrative: This is a very pleasant 59-year-old male with no significant past medical history except for previous episode of syncope x 2 over the past few years, usually when hot and dehydrated, presents today for evaluation of syncope. Patient was outside doing work today in the summer heat. He was up on scaffolding when he felt quite lightheaded. He came down without incident, went over to the garage, and then while in the garage he syncopized by falling forward. He hit his left frontal brow on the cement floor. He was gotten up by friends, and while they were getting him seated upright he syncopized again and fell back and hit his head lightly again. After this they went wash his face with water gave him something to drink and rehydrate and he has been feeling fine since then. He denies any headache. He denies fever or chills. He denies chest pain or shortness of breath. He denies any numbness or tingling or visual changes. He denies vomiting or diarrhea. No other complaints at this time. No other modifying factors. He is not on any medications or blood thinners. Related Data Home Medications ?Medication ?Instructions ?Recorded ?Confirmed Unknown [No Known Home Meds] 02/27/18 07/14/20 Allergies Allergy/AdvReac Type Severity Reaction Status Date / Time No Known Allergies Allergy Unverified 02/20/25 13:48 General Stated Complaint: HeadInjury JUNITO: 3 Exam Narrative Exam Narrative: 1.Const: Well-nourished, Well-developed, appearing stated age 2.Eyes: PERRL, no conjunctival injection, and symmetrical lids. 3.ENT: Atraumatic external nose and ears. Moist MM. Neck: Symmetric, trachea midline, No thyromegaly. There is no evidence of raccoon eyes, martinez sign, CSF rhinorrhea, mastoid tenderness, cranial crepitus, hemotympanum, exophthalmos, or hyphema. Patient demonstrates intact dentition with no signs of tooth avulsion or fracture, no signs of jaw deformity, no evidence of a LeFort's fracture, with an intact palate, nose and orbital region. There is no evidence of a nasal septal hematoma. No proptosis. Jaw closes symmetrically. Airway is clear. Mild abrasion over the left brow. 4.CVS: +S1/S2, Peripheral pulses 2+ and equal in all extremities. Brisk capillary refill in all extremities. 5.RESP: Unlabored respiratory effort. Clear to auscultation bilaterally. No wheezes rales or rhonchi 6.GI: Soft, Nontender/Nondistended, No hepatosplenomegaly. No guarding or rebound. 7.MSK: Normocephalic/Atraumatic, Extremities w/o deformity or ttp No cyanosis or clubbing, Normal movement of all extremities 8.Skin: Warm, Dry. No rashes or lesions. 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 Sensation grossly intact, no focal neurologic deficits. All 6 cardinal planes of vision are fully intact. No evidence of rotatory or vertical nystagmus. The patient demonstrated a normal aptzmc-ntue-oprulj, good dexterity. There was no evidence of dysdiadochokinesia. Patient was able to ambulate without difficulty. There was no wide-based gait. Romberg testing was normal. Cdzg-ow-aljd testing was normal. Sensation was intact bilaterally as well as muscle strength bilaterally for all extremities. Patient was able to verbalize butter cup with no slurring, or miss pronunciation. No midline tenderness to palpation over the CTLS spine. Normal ROM in flexion, extension, side bend, and rotation. Patient has +5 out of 5 strength in the lower extremities in dorsiflexion and plantarflexion, knee flexion and extension, hip flexion and extension. Normal strength for dorsiflexion and plantar flexion of the great toe bilaterally. There is +2 over 2 dorsalis pedis pulses bilaterally. There is normal sensation to the skin with light touch at the foot, knee, and hip. Normal saddle sensation. Good sensation over the deep sural nerve area bilaterally. Rectal exam demonstrates good rectal tone with excellent giovanna-rectal sensation. Reflexes are +2 over 4 in the patellar reflex bilaterally. +5 out of 5 strength in the medial, ulnar, radial nerve distribution bilaterally in the hands as well as intact light touch sensation to these dermatomes on the hands 10.Psych: (AAO) x3. Appropriate mood and affect Course Vital Signs Vital signs: Vital Signs Temperature 34.7 C L 02/20/25 13:39 Pulse 58 L 02/20/25 13:39 Respiratory Rate 18 02/20/25 13:39 Blood Pressure 138/80 02/20/25 13:39 Pulse Oximetry 98 02/20/25 13:39 Temperature 34.7 C L 02/20/25 13:39 Temperature Source Oral 02/20/25 13:39 Pulse 58 L 02/20/25 13:39 Respiratory Rate 18 02/20/25 13:39 Blood Pressure 138/80 02/20/25 13:39 Blood Pressure Position Sitting 02/20/25 13:39 Pulse Oximetry 98 02/20/25 13:39 Oxygen Delivery Method Room Air 02/20/25 13:39 Oxygen Flow Rate 0 02/20/25 13:39 Pain Level 2 02/20/25 13:39 Comment temp checked twice skin is cool 02/20/25 13:39 Medical Decision Making This is a very pleasant 59-year-old male with no significant past medical history except for previous episode of syncope x 2 over the past few years, usually when hot and dehydrated, presents today for evaluation of syncope. Patient was outside doing work today in the summer heat. He was up on scaffolding when he felt quite lightheaded. He came down without incident, went over to the garage, and then while in the garage he syncopized by falling forward. He hit his left frontal brow on the cement floor. He was gotten up by friends, and while they were getting him seated upright he syncopized again and fell back and hit his head lightly again. After this they went wash his face with water gave him something to drink and rehydrate and he has been feeling fine since then. He denies any headache. He denies fever or chills. He denies chest pain or shortness of breath. He denies any numbness or tingling or visual changes. He denies vomiting or diarrhea. No other complaints at this time. No other modifying factors. He is not on any medications or blood thinners. Exam demonstrates an abrasion over the left brow, but no evidence of neurologic deficit, no other signs of trauma. No midline cervical thoracic or lumbar spine tenderness. Due to the patient's age and risk factors we will get CT imaging of the head neck and face. Will rehydrate, check for electrolyte abnormalities, I suspect his symptoms are secondary to mild dehydration and a vasovagal event, however cardiac dysrhythmia is low but still present on the differential. Will monitor closely and reassess. EKG demonstrates Q wave in lead III, but no evidence of delta wave, epsilon wave, Brugada syndrome, de [place] hyperacute T waves, or other significant abnormality. EKG unchanged from 07/13/2020 3:20 PM Laboratory workup has returned unremarkable, electrolytes stable, CT scan of the head neck and face showed no evidence of acute fracture or bleed. Patient has received IV fluids, troponins normal, EKG unchanged. Thyroid function normal. Symptoms appear consistent with mild syncope secondary to dehydration. Patient is in the low risk group via [place] syncope rules. Patient feels well and would like to go home. Patient shows no other signs of altered mental status, cardiac dysrhythmia or other concerning components. Patient has been rehydrated with a liter of normal saline. Discussed red flags for which to return. Tetanus has been updated. I have extensively reviewed the treatment plan and discharge instructions with the patient. I have addressed all patient concerns at this time. The patient was made aware of what symptoms to monitor for that would warrant a return to the emergency department. Discussed the plan with the patient, they demonstrate verbal understanding and agreement with our assessment and plan at this time. The documentation in this chart was dictated using [employer] dictation software. Please excuse any dictation errors. FINDINGS: Brain: There is no intracranial hemorrhage. There is no midline shift or space occupying mass. There is normal jeffery-white matter differentiation without evidence of acute large vascular territorial infarct. There is no cerebral edema. There are no extra-axial fluid collections. The posterior fossa structures are unremarkable. The basal cisterns are patent. Cerebral ventricles: The ventricles are normal in position. No hydrocephalus. Paranasal sinuses: The visualized paranasal sinuses are well-aerated. There are no air fluid levels to suggest acute sinusitis. Mastoid air cells: The tympanomastoid air cells are normally aerated as visualized. Orbital cavities: The orbits are unremarkable as visualized. Bones: No acute fracture. No suspicious osseous lesions. Soft tissues: The soft tissues are unremarkable. IMPRESSION: No acute intracranial findings FINDINGS: Paranasal sinuses: Mild nodular mucoperiosteal thickening in the floor of the RIGHT maxillary sinus. The remainder of the paranasal sinuses are normally aerated. There are no air-fluid levels. Orbital cavities: Orbits are normal. Globes are unremarkable. Mastoid air cells: The tympanomastoid air cells are normally aerated as visualized. Bones: No acute fracture. No suspicious osseous lesions. Soft tissues: There is soft tissue in the LEFT external auditory canal consistent with cerumen. The soft tissues are unremarkable. IMPRESSION: No acute findings. FINDINGS: Bones: There is slight reversal of the cervical lordosis. Minimal anterolisthesis at C3-C4 and C4-C5. Moderate disc space narrowing at C5-C6 and C6-C7. Degenerative changes are present in the cervical spine at multiple levels resulting in moderate RIGHT foraminal stenosis at C5-C6 and C6-C7. No significant central canal stenosis is present. No focal suspicious osseous lesions. No acute fracture. Vertebrae normal in height. Facet alignment is within normal limits. Craniocervical junction and odontoid process unremarkable. Discs/Spinal canal/Neural foramina: See Bones/joints finding. See Bones/joints finding. Pharynx: Calcification of the palatine tonsils consistent with prior infection or inflammation. Lungs: Scarring at the lung apices bilaterally. Soft tissues: Soft tissues unremarkable. IMPRESSION: 1. No acute findings. 2. Degenerative changes of the cervical spine. Thank you for allowing us to participate in the care of your patient. Dictated and Authenticated by: Megan Yusuf MD 02/20/2025 3:13 PM Eastern Time ([place] & [place]) PFSH All Active Problems (Updated 02/20/25 @ 15:26 by Antonio Vasquez DO) Dehydration (Acute) Abnormal ECG (Acute) Syncope (Chronic) Surgical History Colonoscopy - MAC (10/15/16) Social History Smoking/Tobacco Use Status: Never Smoking risk assessment performed?: Yes Drug use: Never Do you feel safe at home: Yes Do you feel safe in your relationship?: Yes
[2025-02-20] MEDS: Lactated Ringers 1,000 ML 1000 ML IV (14:25)
[2025-02-20 14:36] LABS: Abs Immature Grans 0.02 10^3/uL (0.0-0.06); Absolute Basophil Count 0.02 10^3/uL (0.0-0.2); Absolute Eosinophil Count 0.02 10^3/uL (0.0-0.7); Absolute Lymphocyte Count 1.09 10^3/uL (1.2-3.4); Absolute Monocyte Count 0.33 10^3/uL (0.1-0.8); Absolute Neutrophil Count 4.88 10^3/uL (1.2-6.7); Basophils % 0.3 %; Eosinophils % 0.3 %; HCT 45.2 % (40.0-50.0); HGB 14.8 g/dL (13.5-17.5); Immature Grans % 0.3 %; Lymphocytes % 17.1 %; MCH 30.8 pg (27.0-33.0); MCHC 32.7 % (32.0-36.0); MCV 94 fL (80-95); MPV 10.8 fL (8.0-11.0); Monocytes % 5.2 %; Neutrophils % 76.8 %; Platelet Count 162 10^3/uL (130-400); RDW 12.1 % (11.8-14.1); RDW-SD 42.5 fL; WBC 6.36 10^3/uL (4.4-10.8)
[2025-02-20 14:57] LABS: INR 1.1 (0.9-1.1); PTT Activated 20.2 sec (20.6-30.2); Prothrombin Time 10.7 sec (9.1-11.1)
[2025-02-20 14:59] LABS: ALT 30 U/L (16-63); AST 13 U/L (15-37); Albumin 3.9 g/dL (3.4-5.0); Alkaline Phosphatase 77 U/L (46-116); Anion Gap 5.3 mmol/L (3-11); BUN 15 mg/dL (7-18); Bilirubin, Total 0.7 mg/dL (0.2-1.0); CO2 32.7 mmol/L (21.0-32.0); Calcium 8.9 mg/dL (8.5-10.1); Chloride 104 mmol/L (98-107); Estimated GFR 86.16 (mL/min/1.73m2); Glucose 126 mg/dL (74-106); Potassium 4.6 mmol/L (3.5-5.1); Sodium 142 mmol/L (136-145); TSH (W/Ref FT4) 3.16 uIU/mL (0.36-3.74); Total Protein 7.2 g/dL (6.4-8.2); Troponin I 4 ng/L (<or=76)
--- NOTE | 2025-02-20 15:14 | DI.[facility]AD_ITS ---
PROCEDURE INFORMATION: Exam: CT Head Without Contrast Exam date and time: 02/20/2025 2:34 PM Age: 59 years old Clinical indication: Injury or trauma; Fall and other: Syncope, hit front and back of head; Blunt trauma (contusions or hematomas); Consciousness not specified; Forehead TECHNIQUE: Imaging protocol: Computed tomography of the head without contrast. COMPARISON: CT HEAD WO 07/13/2020 6:51 PM FINDINGS: Brain: There is no intracranial hemorrhage. There is no midline shift or space occupying mass. There is normal jeffery-white matter differentiation without evidence of acute large vascular territorial infarct. There is no cerebral edema. There are no extra-axial fluid collections. The posterior fossa structures are unremarkable. The basal cisterns are patent. Cerebral ventricles: The ventricles are normal in position. No hydrocephalus. Paranasal sinuses: The visualized paranasal sinuses are well-aerated. There are no air fluid levels to suggest acute sinusitis. Mastoid air cells: The tympanomastoid air cells are normally aerated as visualized. Orbital cavities: The orbits are unremarkable as visualized. Bones: No acute fracture. No suspicious osseous lesions. Soft tissues: The soft tissues are unremarkable. IMPRESSION: No acute intracranial findings. PROCEDURE INFORMATION: Exam: CT Maxillofacial Without Contrast Exam date and time: 02/20/2025 2:34 PM Age: 59 years old Clinical indication: Injury or trauma; Fall and other: Syncope, hit front and back of head; Blunt trauma (contusions or hematomas); Consciousness not specified; Forehead TECHNIQUE: Imaging protocol: Computed tomography of the face without contrast. COMPARISON: CT HEAD WO 07/13/2020 6:51 PM FINDINGS: Paranasal sinuses: Mild nodular mucoperiosteal thickening in the floor of the RIGHT maxillary sinus. The remainder of the paranasal sinuses are normally aerated. There are no air-fluid levels. Orbital cavities: Orbits are normal. Globes are unremarkable. Mastoid air cells: The tympanomastoid air cells are normally aerated as visualized. Bones: No acute fracture. No suspicious osseous lesions. Soft tissues: There is soft tissue in the LEFT external auditory canal consistent with cerumen. The soft tissues are unremarkable. IMPRESSION: No acute findings. PROCEDURE INFORMATION: Exam: CT Cervical Spine Without Contrast Exam date and time: 02/20/2025 2:34 PM Age: 59 years old Clinical indication: Injury or trauma; Fall and other: Syncope, hit front and back of head; Blunt trauma (contusions or hematomas); Consciousness not specified; Forehead TECHNIQUE: Imaging protocol: Computed tomography of the cervical spine without contrast. COMPARISON: US CAROTID 08/08/2020 10:48 AM FINDINGS: Bones: There is slight reversal of the cervical lordosis. Minimal anterolisthesis at C3-C4 and C4-C5. Moderate disc space narrowing at C5-C6 and C6-C7. Degenerative changes are present in the cervical spine at multiple levels resulting in moderate RIGHT foraminal stenosis at C5-C6 and C6-C7. No significant central canal stenosis is present. No focal suspicious osseous lesions. No acute fracture. Vertebrae normal in height. Facet alignment is within normal limits. Craniocervical junction and odontoid process unremarkable. Discs/Spinal canal/Neural foramina: See Bones/joints finding. See Bones/joints finding. Pharynx: Calcification of the palatine tonsils consistent with prior infection or inflammation. Lungs: Scarring at the lung apices bilaterally. Soft tissues: Soft tissues unremarkable. IMPRESSION: 1. No acute findings. 2. Degenerative changes of the cervical spine. Dictated and Authenticated by: Megan Yusuf MD. Orderin Christina Alvarez MD
[2025-02-20] MEDS: Diph,Pertuss(Acell),Tet Vac/Pf 0.5 ML SYR IM (15:30)
== END 2025-02-20 16:01 | disposition home or self-care (01) ==
PROVIDERS: Emergency Provider Student in an Organized Health Care Education/Training Program; PCP Family Medicine
DX: R55 Syncope and collapse (principal); E86.0 Dehydration; Z23 Encounter for immunization
CPT/HCPCS: 36415; 80053; 90471; 90715; 93005; 96360; 99285; 70450; 70486; 72125; 84443; 84484; 85025; 85610; 85730; 93010